=== PATIENT | male | born 1960 | race Caucasian/White ===

== ENCOUNTER → 2017-03-09 | Outpatient (REF) | payer BC ==
[2017-03-09 13:44] LABS: MEAN CORPUSCULAR HEMOGLOBIN 31.7 pg (27.0-33.0); MEAN CORPUSCULAR HGB CONC 35.5 g/dl (32.0-36.5); MEAN CORPUSCULAR VOLUME 89.3 fl (80.0-96.0); RED CELL DISTRIBUTION WIDTH 13.1 % (11.5-14.5); WHITE BLOOD COUNT 4.8 K/mm3 (4.0-10.0)
[2017-03-09 14:04] LABS: ALBUMIN 3.9 GM/DL (3.2-5.2); ALBUMIN/GLOBULIN RATIO 1.15 (1.00-1.93); ALKALINE PHOSPHATASE 67 U/L (45-117); ALT/SGPT 21 U/L (12-78); ANION GAP 6 MEQ/L (8-16); AST/SGOT 16 U/L (15-37); BILIRUBIN,TOTAL 0.6 MG/DL (0.2-1.0); BLOOD UREA NITROGEN 16 MG/DL (7-18); CALCIUM LEVEL 8.8 MG/DL (8.5-10.1); CARBON DIOXIDE LEVEL 29 MEQ/L (21-32); CHLORIDE LEVEL 106 MEQ/L (98-107); CHOLESTEROL LEVEL 168 MG/DL (<200); CREATININE FOR GFR 0.93 MG/DL (0.70-1.30); GLOMERULAR FILTRATION RATE > 60.0 (>56); GLUCOSE, FASTING 81 MG/DL (70-105); POTASSIUM SERUM 4.2 MEQ/L (3.5-5.1); SODIUM LEVEL 141 MEQ/L (136-145); TOTAL PROTEIN 7.3 GM/DL (6.4-8.2); TRIGLYCERIDES LEVEL 154 MG/DL (<150)
== END ==
LOC: M LABDRWAD 12:52
PROVIDERS: ATTEND Family Medicine
DX: N40.0 Benign prostatic hyperplasia without lower urinary tract symptoms (principal); E78.4 Other hyperlipidemia

== ENCOUNTER → 2018-03-06 | Outpatient (REF) | payer BC ==
[2018-03-06 12:46] LABS: HEMATOCRIT 43.6 % (42.0-52.0); MEAN CORPUSCULAR HEMOGLOBIN 30.8 pg (27.0-33.0); MEAN CORPUSCULAR HGB CONC 34.4 g/dl (32.0-36.5); MEAN CORPUSCULAR VOLUME 89.5 fl (80.0-96.0); PLATELET COUNT, AUTOMATED 188 10^3/uL (150-450); RED BLOOD COUNT 4.87 10^6/uL (4.30-6.10); RED CELL DISTRIBUTION WIDTH 12.9 % (11.5-14.5); WHITE BLOOD COUNT 5.8 10^3/uL (4.0-10.0)
[2018-03-06 13:09] LABS: ALBUMIN/GLOBULIN RATIO 1.21 (1.00-1.93); ALKALINE PHOSPHATASE 69 U/L (45-117); ALT/SGPT 22 U/L (12-78); ANION GAP 7 MEQ/L (8-16); AST/SGOT 19 U/L (7-37); BILIRUBIN,TOTAL 0.5 MG/DL (0.2-1.0); BLOOD UREA NITROGEN 13 MG/DL (7-18); CALCIUM LEVEL 8.4 MG/DL (8.5-10.1); CARBON DIOXIDE LEVEL 29 MEQ/L (21-32); CHLORIDE LEVEL 107 MEQ/L (98-107); CHOLESTEROL LEVEL 168 MG/DL (<200); CPK CREATINE PHOSPHOKINASE 131 U/L (39-308); CREATININE FOR GFR 0.96 MG/DL (0.70-1.30); FREE T3 3.1 PG/ML (2.2-4.0); FREE T4 0.84 NG/DL (0.76-1.46); GLOMERULAR FILTRATION RATE > 60.0 (>56); GLUCOSE, FASTING 87 MG/DL (70-100); HDL CHOLESTEROL 42 MG/DL (>40); NON-HDL-C 126 MG/DL; POTASSIUM SERUM 4.3 MEQ/L (3.5-5.1); PROSTATIC SPECIFIC AG MONITOR 0.19 NG/ML (< 4.0); SODIUM LEVEL 143 MEQ/L (136-145); TOTAL PROTEIN 7.3 GM/DL (6.4-8.2); TRIGLYCERIDES LEVEL 135 MG/DL (<150)
== END ==
LOC: M LABDRWAD 12:15
DX: E78.2 Mixed hyperlipidemia (principal); Z12.5 Encounter for screening for malignant neoplasm of prostate
CPT/HCPCS: 82550

== ENCOUNTER → 2018-03-20 | Outpatient (CLI) | payer BC | LOC: M RAD 08:29 | DX: R05 Cough (principal); M25.532 Pain in left wrist | CPT/HCPCS: 71046 ==

== ENCOUNTER → 2019-03-25 | Outpatient (CLI) | payer BC ==
[2019-03-25 12:25] LABS: HEMATOCRIT 42.1 % (42.0-52.0); HEMOGLOBIN 14.2 g/dl (13.5-17.5); MEAN CORPUSCULAR HEMOGLOBIN 30.1 pg (27.0-33.0); MEAN CORPUSCULAR HGB CONC 33.7 g/dl (32.0-36.5); MEAN CORPUSCULAR VOLUME 89.2 fl (80.0-96.0); PLATELET COUNT, AUTOMATED 207 10^3/uL (150-450); RED BLOOD COUNT 4.72 10^6/uL (4.30-6.10); WHITE BLOOD COUNT 5.4 10^3/uL (4.0-10.0)
[2019-03-25 12:50] LABS: ALBUMIN 3.8 GM/DL (3.2-5.2); ALT/SGPT 21 U/L (12-78); BILIRUBIN,TOTAL 0.7 MG/DL (0.2-1.0); BLOOD UREA NITROGEN 13 MG/DL (7-18); CALCIUM LEVEL 8.5 MG/DL (8.5-10.1); CARBON DIOXIDE LEVEL 28 MEQ/L (21-32); CHLORIDE LEVEL 105 MEQ/L (98-107); CPK CREATINE PHOSPHOKINASE 187 U/L (39-308); CREATININE FOR GFR 0.88 MG/DL (0.70-1.30); GLOMERULAR FILTRATION RATE > 60.0 (>56); GLUCOSE, FASTING 83 MG/DL (70-100); PROSTATIC SPECIFIC AG MONITOR 0.29 NG/ML (< 4.00); SODIUM LEVEL 138 MEQ/L (136-145); TOTAL PROTEIN 7.2 GM/DL (6.4-8.2)
== END ==
LOC: M LABDRWAD 08:57
PROVIDERS: ATTEND Family Medicine
DX: E78.2 Mixed hyperlipidemia (principal); Z12.5 Encounter for screening for malignant neoplasm of prostate

== ENCOUNTER → 2019-03-25 | Outpatient (CLI) | payer BC ==
--- NOTE | 2019-03-25 11:28 | REP ---
Clinical: Chronic pain. Technique: AP and lateral views of the left tibia / fibula. Findings: No acute fracture dislocation. Skeletal structures, joint spaces, and surrounding soft tissues are relatively normal for age and without acute finding. Calcification at the tibial tuberosity at the site of patellar tendon insertion may reflect mild tendinopathy. No subcutaneous emphysema or radiodense foreign body. Impression: Questionable patellar tendinopathy. Electronically Signed by Gunnar Madison MD 03/25/2019 11:19 A
== END ==
LOC: M ADAMS 08:53
PROVIDERS: ATTEND Family Medicine
DX: G89.29 Other chronic pain (principal)

== ENCOUNTER → 2020-04-06 | Outpatient (REF) | payer BC ==
[~2020-04-06] MED LIST: ASPI81TA86 PO; CARV3.12 PO; FINA5TAB2; LISI10TA4; MM S100C PO; NORC1TAB7 PO; OMEP-218 PO; PRAV20TA2 PO
[2020-04-06 13:09] LABS: HEMATOCRIT 43.1 % (42.0-52.0); HEMOGLOBIN 14.3 g/dl (13.5-17.5); MEAN CORPUSCULAR HEMOGLOBIN 29.7 pg (27.0-33.0); MEAN CORPUSCULAR HGB CONC 33.2 g/dl (32.0-36.5); MEAN CORPUSCULAR VOLUME 89.6 fl (80.0-96.0); PLATELET COUNT, AUTOMATED 189 10^3/uL (150-450); RED BLOOD COUNT 4.81 10^6/uL (4.30-6.10); WHITE BLOOD COUNT 5.7 10^3/uL (4.0-10.0)
[2020-04-06 13:19] LABS: ALBUMIN 3.7 GM/DL (3.2-5.2); ALT/SGPT 22 U/L (12-78); BILIRUBIN,TOTAL 0.7 MG/DL (0.2-1.0); BLOOD UREA NITROGEN 14 MG/DL (7-18); CALCIUM LEVEL 8.8 MG/DL (8.5-10.1); CARBON DIOXIDE LEVEL 29 MEQ/L (21-32); CHLORIDE LEVEL 107 MEQ/L (98-107); CREATININE FOR GFR 0.93 MG/DL (0.70-1.30); FREE T3 2.9 PG/ML (2.2-4.0); FREE T4 0.83 NG/DL (0.76-1.46); GLOMERULAR FILTRATION RATE > 60.0 (>56); GLUCOSE, FASTING 84 MG/DL (70-100); POTASSIUM SERUM 4.4 MEQ/L (3.5-5.1); PROSTATIC SPECIFIC AG MONITOR 0.25 NG/ML (< 4.00); SODIUM LEVEL 141 MEQ/L (136-145); TOTAL PROTEIN 7.3 GM/DL (6.4-8.2); URIC ACID 6.1 MG/DL (3.5-7.2)
[2020-04-06 13:42] LABS: CREATININE, URINE 57.3 MG/DL; MALB URINE SIEMENS < 5.0 MG/L; MAU/CREAT RATIO 8.7 MCG/MG (0.0-30.0)
== END ==
LOC: M LABDRWAD 12:23
PROVIDERS: ATTEND Family Medicine
DX: N40.0 Benign prostatic hyperplasia without lower urinary tract symptoms (principal); N18.2 Chronic kidney disease, stage 2 (mild); E06.3 Autoimmune thyroiditis

== ENCOUNTER → 2020-07-03 | Outpatient (CLI) | payer BC | LOC: M LABSMTC 08:54 | PROVIDERS: ATTEND Anesthesiology | DX: Z01.812 Encounter for preprocedural laboratory examination (principal); Z20.828 Contact with and (suspected) exposure to other viral communicable diseases | CPT/HCPCS: C9803; U0003 ==

== ENCOUNTER 2020-07-08 05:56 | Day surgery (SDC) | payer BC ==
[~2020-07-08] VITALS: Ht 172.7 cm; Wt 108.0 kg
[~2020-07-08 05:56] MED LIST changes: -NORC1TAB7 PO
[2020-07-08] MEDS ORDERED: LR 1,000 ML IV ONE (06:00)
[2020-07-08] MEDS ORDERED: BUPIVACAINE HCL 0.25% 30ML VIAL As Ordered ONE (07:18)
[2020-07-08] MEDS ORDERED: ROCURONIUM BROMIDE 50 MG/5 ML VIAL As Ordered ONE (07:19)
[2020-07-08] MEDS ORDERED: fentaNYL 250 MCG/5 ML INJECTION (J3010) As Ordered ONE (07:19)
[2020-07-08] MEDS ORDERED: dexameTHASONE 4 MG/ML 1ML VIAL (J1100 PER 1MG) As Ordered ONE (07:19)
[2020-07-08] MEDS ORDERED: propofoL 200 MG/20 ML VIAL As Ordered ONE (07:19)
[2020-07-08] MEDS ORDERED: LIDOCAINE 2% 100MG/5ML SDV (FOR ANES.) As Ordered ONE (07:19)
[2020-07-08] MEDS ORDERED: ONDANSETRON 4MG/2ML VIAL As Ordered ONE ×2 (07:19→09:19)
[2020-07-08] MEDS ORDERED: MIDAZOLAM INJ 2MG/2ML VIAL (J2250 PER 1MG) As Ordered ONE (07:20)
[2020-07-08] MEDS ORDERED: SCOPOLAMINE 1MG TRANSDERMAL PATCH As Ordered ONE (07:21)
[2020-07-08] MEDS ORDERED: LACRILUBE (AKWA TEARS) OPHTH OINT 3.5 GM As Ordered ONE (07:47)
[2020-07-08] MEDS ORDERED: PHENYLephrine HCL 500 MCG/5 ML (100MCG/ML) SYRINGE (J2370) As Ordered ONE (07:53)
[2020-07-08] MEDS ORDERED: SCOPOLAMINE 1MG TRANSDERMAL PATCH TOP ONE (08:00)
[2020-07-08] MEDS ORDERED: ACETAMINOPHEN 1000MG 100ML IV BTL (OFIRMEV) (J0131 PER 10MG) As Ordered ONE (08:28)
[2020-07-08] MEDS ORDERED: HYDROmorphone HCL 2 MG/ML 1ML VIAL (J1170) As Ordered ONE (08:38)
[2020-07-08] MEDS ORDERED: SUGAMMADEX SODIUM 500 MG/5 ML VIAL (BRIDION) As Ordered ONE (08:38)
[2020-07-08] MEDS ORDERED: METOCLOPRAMIDE INJ 10MG/2ML VIAL (J2765 PER 1) As Ordered ONE (08:48)
[2020-07-08] MEDS ORDERED: NORC1TAB7 PO (09:51)
[2020-07-08] MEDS ORDERED: oxyCODONE 5MG TAB As Ordered ONE (10:07)
[2020-07-08] MEDS ORDERED: fentaNYL 100 MCG/2 ML INJECTION (J3010) IV PRN (10:30)
[2020-07-08] MEDS ORDERED: oxyCODONE 5MG TAB PO PRN (10:30)
[2020-07-08] MEDS ORDERED: ONDANSETRON 4MG/2ML VIAL IV PRN (10:30)
[2020-07-08] MEDS ORDERED: LR 1,000 ML IV SCH (10:30)
[2020-07-08] MEDS ORDERED: ACETAMINOPHEN TAB 650MG DOSE (2X325MG) PO PRN (11:00)
[2020-07-08 11:25] VITALS: BP 132/69
--- NOTE | 2020-07-08 14:06 | RO ---
DATE OF OPERATION: 07/08/2020 PREOPERATIVE DIAGNOSIS: Right inguinal hernia. POSTOPERATIVE DIAGNOSES: 1. Indirect right inguinal hernia. 2. Abdominal adhesions secondary to prior hernia repair. PROCEDURE PERFORMED: Laparoscopic lysis of adhesions and robotic-assisted laparoscopic repair of right inguinal hernia with mesh. The mesh utilized was [employer] ProGrip reference code [id number] and lot #[id number]. SURGEON: Viktor Covarrubias MD PERSONAL FINANCE INSTRUCTOR: JOHANN Ramirez was essential for management of the robotic arms, placement of the trocars, change of instruments, passage of needles and mesh, and closing of the incisions at the conclusion of the procedure. ANESTHESIA: General. INDICATIONS FOR PROCEDURE: Patient is a 60-year-old man who has noticed a bulge in the right inguinal area. Examination confirmed an inguinal hernia and he is now for repair. OPERATIVE PROCEDURE: The patient was brought to the operating room and placed on the table in a supine position. He was placed under general endotracheal anesthesia. The patient's abdomen was prepped and draped in a sterile fashion. 0.25% Marcaine was infiltrated at each of the trocars as needed. A short transverse incision was made about 4 cm above the umbilicus along the midline. A Veress needle was inserted and after a positive hanging drop test, the abdomen was insufflated with carbon dioxide gas. An 8 mm robotic port was placed over a 5 mm scope and advanced through the abdominal wall. On entering the abdomen, it was clear that there were some adhesions of the omentum to the anterior abdominal wall just inferior to the insertion site of the trocar. The patient has a history of a prior hernia repair with mesh along the midline. It was possible to maneuver the scope around the adhesions to see his definite right inguinal hernia. There were a few adhesions of the bowel in the left lower quadrant that obscured the left inguinal area. Liver and gallbladder appeared normal. Otherwise, the abdomen was without any apparent abnormalities. A second robotic port was placed in the right upper quadrant and a third in the left. I elected to perform an adhesiolysis so that these would not interfere with the surgery. A 5 mm scissor was placed through the midline port with the camera in the left upper quadrant and the cauterizing scissors were used to perform an adhesiolysis of the omentum to the mesh along the midline. This was completed without difficulty and blood loss was minimal. The patient was then tilted to a 15-degree Trendelenburg position. The table was lowered. The patient cart of the Xi robot was brought into position and the endoscope port was docked. Targeting took place in the right pelvis and the additional ports were then docked to the appropriate robotic arms. A fenestrated bipolar and cauterizing scissors were inserted and I then moved to the control console to proceed with the operation. Initially, I took down the few filmy adhesions of the colon in the left lower quadrant to better inspect the left lower quadrant. There was a small dimple in the left inguinal area but this did not appear to constitute a hernia so this was noted but no surgery was undertaken on the left. On the right side, he had a definite indirect hernia sac. A peritoneal flap was then developed. A peritoneal incision was begun using the cautery approximately 5-6 cm above the top of the hernia defect. An incision was made beginning at the lateral aspect of the medial umbilical ligament and extending laterally and then curving inferiorly toward the anterosuperior iliac spine. The peritoneal flap was developed by a combination of blunt, sharp and cautery dissection. As the hernia sac was identified, this was withdrawn from within the inguinal canal and from the underlying spermatic cord structures, which were preserved. Small bleeding points were controlled with the cautery. The peritoneum was peeled away to create a space for placement of a 10 x 15 cm patch. Once the flap had been created, cottonoids were used to remove a small amount of blood and several small bleeding points were controlled with the cautery. A 10 x 15 cm ProGrip mesh was then trimmed slightly at the corners and inserted into the abdomen. This was placed over the inner aspect of the inguinal floor centered on the hernia defect. The mesh was then unfolded and then pressed gently into the underlying soft tissues. The adherent side nicely fixed the mesh in place. Final inspection revealed excellent hemostasis. A 2-0 absorbable V-Loc suture was begun at the lateral aspect of the peritoneal flap and carried medially. Once the first half of the closure was complete, the pressure within the abdomen was reduced to 8 mmHg and the patient was returned to a flat position. The remaining portion of the closure was completed. The last cottonoid and remaining suture needle were removed from the abdomen. The patient tolerated the procedure well without apparent complication. The robotic instruments were removed. The robot was undocked. The abdomen was deflated and the trocars were removed. Najma Avendaño then proceeded to close the skin incisions with buried 4-0 Vicryl and Steri- Strips. Light dressings were applied. The patient was then awakened in the operating room, extubated and moved to the recovery room in stable condition. MACY
== END 2020-07-08 11:30 | disposition home or self-care (01) ==
LOC: M SDC 05:56
PROVIDERS: ATTEND Surgery
DX: K40.90 Unilateral inguinal hernia, without obstruction or gangrene, not specified as recurrent (principal); K66.0 Peritoneal adhesions (postprocedural) (postinfection); I10 Essential (primary) hypertension; K21.9 Gastro-esophageal reflux disease without esophagitis; N40.0 Benign prostatic hyperplasia without lower urinary tract symptoms; Z87.891 Personal history of nicotine dependence; F12.10 Cannabis abuse, uncomplicated; Z79.899 Other long term (current) drug therapy
CPT/HCPCS: 49650; C1781; J0131; J1100; J1170; J2250; J2370; J2405; J2765; J3010; S2900

== ENCOUNTER → 2021-01-31 | Outpatient (REF) | payer BC ==
[~2021-01-31] MED LIST changes: +LISI10TA22; -LISI10TA4; +NORC1TAB7 PO
[2021-01-31 13:35] LABS: BASO # 0.1 10^3/uL (0.0-0.2); BASO % 1.4 % (0.0-1.0); EOS # 0.3 10^3/uL (0.0-0.5); EOS % 5.3 % (0.0-3.0); HEMATOCRIT 42.2 % (42.0-52.0); HEMOGLOBIN 14.3 g/dl (13.5-17.5); LYMPH # 1.9 10^3/uL (1.5-5.0); MEAN CORPUSCULAR HEMOGLOBIN 30.1 pg (27.0-33.0); MEAN CORPUSCULAR HGB CONC 33.9 g/dl (32.0-36.5); MEAN CORPUSCULAR VOLUME 88.8 fl (80.0-96.0); MONO # 0.4 10^3/uL (0.0-0.8); MONO % 6.9 % (2.0-8.0); NEUTROPHILS # 3.6 10^3/uL (1.5-8.5); NEUTROPHILS % 56.1 % (36.0-66.0); PLATELET COUNT, AUTOMATED 204 10^3/uL (150-450); RED BLOOD COUNT 4.75 10^6/uL (4.30-6.10); WHITE BLOOD COUNT 6.4 10^3/uL (4.0-10.0)
[2021-01-31 14:08] LABS: ALT/SGPT 23 U/L (12-78); BILIRUBIN,TOTAL 0.5 MG/DL (0.2-1.0); BLOOD UREA NITROGEN 17 MG/DL (7-18); CALCIUM LEVEL 9.4 MG/DL (8.5-10.1); CARBON DIOXIDE LEVEL 29 MEQ/L (21-32); CHLORIDE LEVEL 107 MEQ/L (98-107); CHOLESTEROL LEVEL 171 MG/DL (<200); CREATININE FOR GFR 0.88 MG/DL (0.70-1.30); GLOMERULAR FILTRATION RATE > 60.0 (>56); GLUCOSE, FASTING 81 MG/DL (70-100); HDL CHOLESTEROL 45 MG/DL (>40); LDL CHOLESTEROL 98 MG/DL (<100); NON-HDL-C 126 MG/DL; POTASSIUM SERUM 4.5 MEQ/L (3.5-5.1); SODIUM LEVEL 140 MEQ/L (136-145); TOTAL PROTEIN 7.4 GM/DL (6.4-8.2); TRIGLYCERIDES LEVEL 138 MG/DL (<150)
== END ==
LOC: M LABDRWAD 13:12
PROVIDERS: ATTEND Nurse Practitioner Family
DX: I35.9 Nonrheumatic aortic valve disorder, unspecified (principal); I44.7 Left bundle-branch block, unspecified; I42.0 Dilated cardiomyopathy; E78.00 Pure hypercholesterolemia, unspecified; Z79.82 Long term (current) use of aspirin

== ENCOUNTER → 2021-02-06 | Outpatient (CLI) | payer BC | LOC: M LABSMTC 10:31 | PROVIDERS: ATTEND Internal Medicine Cardiovascular Disease | DX: Z20.828 Contact with and (suspected) exposure to other viral communicable diseases (principal); Z11.59 Encounter for screening for other viral diseases ==

== ENCOUNTER → 2022-02-13 | Outpatient (CLI) | payer BC ==
[~2022-02-13] MED LIST changes: +OMEP-173 PO; -OMEP-218 PO
[2022-02-13 13:28] LABS: ALBUMIN 3.7 GM/DL (3.2-5.2); ALT/SGPT 25 U/L (12-78); BILIRUBIN,DIRECT 0.1 MG/DL (0.0-0.2); BILIRUBIN,TOTAL 0.5 MG/DL (0.2-1.0); BLOOD UREA NITROGEN 14 MG/DL (7-18); CALCIUM LEVEL 8.7 MG/DL (8.8-10.2); CARBON DIOXIDE LEVEL 27 MEQ/L (21-32); CHLORIDE LEVEL 107 MEQ/L (98-107); CHOLESTEROL LEVEL 133 MG/DL (<200); CHOLESTEROL RISK RATIO 3.093 (<5); CREATININE FOR GFR 0.99 MG/DL (0.70-1.30); GLOMERULAR FILTRATION RATE > 60.0 (>49); GLUCOSE, FASTING 87 MG/DL (70-100); HDL CHOLESTEROL 43 MG/DL (>40); LDL CHOLESTEROL 68 MG/DL (<100); MAGNESIUM LEVEL 1.8 MG/DL (1.8-2.4); NON-HDL-C 90 MG/DL; NT-PRO BNP 72 PG/ML (<125); POTASSIUM SERUM 4.1 MEQ/L (3.5-5.1); SODIUM LEVEL 139 MEQ/L (136-145); TOTAL PROTEIN 7.2 GM/DL (6.4-8.2); TRIGLYCERIDES LEVEL 111 MG/DL (<150); URIC ACID 6.9 MG/DL (3.5-7.2)
[2022-02-13 13:33] LABS: TESTOSTERONE 670 NG/DL (241-827)
== END ==
LOC: M ADAMS 08:37
PROVIDERS: ATTEND Family Medicine
DX: R06.02 Shortness of breath (principal); E78.2 Mixed hyperlipidemia; I50.20 Unspecified systolic (congestive) heart failure; I11.0 Hypertensive heart disease with heart failure; F52.21 Male erectile disorder

== ENCOUNTER → 2022-02-22 | Outpatient (CLI) | payer BC ==
[2022-02-22 13:29] LABS: FREE T3 2.5 PG/ML (2.2-4.0); FREE T4 0.76 NG/DL (0.76-1.46); THYROID STIMULATING HORMONE 3.26 uIU/ML (0.358-3.740)
== END ==
LOC: M ADAMS 10:55
PROVIDERS: ATTEND Family Medicine
DX: R00.2 Palpitations (principal)

== ENCOUNTER → 2022-02-27 | Outpatient (CLI) | payer BC | LOC: M RAD 07:37 | PROVIDERS: ATTEND Family Medicine | DX: Z01.89 Encounter for other specified special examinations (principal) ==

== ENCOUNTER → 2022-03-01 | Outpatient (CLI) | payer BC | LOC: M RAD 09:00 | PROVIDERS: ATTEND Family Medicine | DX: R05.9 Cough, unspecified (principal); K44.9 Diaphragmatic hernia without obstruction or gangrene; K80.20 Calculus of gallbladder without cholecystitis without obstruction; I25.10 Atherosclerotic heart disease of native coronary artery without angina pectoris ==

== ENCOUNTER → 2024-01-14 | Outpatient (REF) | payer BC ==
[2024-01-14 14:17] LABS: ALBUMIN 3.8 G/DL (3.2-5.2); ALKALINE PHOSPHATASE 98 U/L (46-116); ALT/SGPT 24 U/L (7.0-40); AST/SGOT 23 U/L (<34); BILIRUBIN,TOTAL 0.7 MG/DL (0.3-1.2); BLOOD UREA NITROGEN 16 MG/DL (9-23); CALCIUM LEVEL 9.9 MG/DL (8.3-10.6); CARBON DIOXIDE LEVEL 30 MMOL/L (20-31); CHLORIDE LEVEL 103 MMOL/L (98-107); CHOLESTEROL LEVEL 123 MG/DL (<200); CHOLESTEROL RISK RATIO 3.48 (<5); CREATININE FOR GFR 0.95 MG/DL (0.70-1.30); GLOMERULAR FILTRATION RATE > 60.0 (>49); GLUCOSE, FASTING 93 MG/DL (74-106); HDL CHOLESTEROL 35.3 MG/DL (>40); LDL CHOLESTEROL 67.7 MG/DL (<100); NON-HDL-C 87.7 MG/DL; POTASSIUM SERUM 4.8 MMOL/L (3.5-5.1); SODIUM LEVEL 137 MMOL/L (136-145); TOTAL PROTEIN 7.3 G/DL (5.7-8.2); TRIGLYCERIDES LEVEL 100 MG/DL (<150)
== END ==
LOC: M LABDRWAD 12:29
PROVIDERS: ATTEND Registered Nurse
DX: E78.2 Mixed hyperlipidemia (principal)

== ENCOUNTER → 2024-02-25 | Outpatient (CLI) | payer BC ==
[2024-02-25 10:19] LABS: BASO # 0.1 10^3/uL (0.0-0.2); BASO % 1.4 % (0.0-1.0); EOS # 0.2 10^3/uL (0.0-0.5); EOS % 3.1 % (0.0-3.0); HEMATOCRIT 44.2 % (42.0-52.0); HEMOGLOBIN 15.2 g/dl (13.5-17.5); LYMPH % 27.8 % (24.0-44.0); MEAN CORPUSCULAR HEMOGLOBIN 30.4 pg (27.0-33.0); MEAN CORPUSCULAR HGB CONC 34.4 g/dl (32.0-36.5); MEAN CORPUSCULAR VOLUME 88.4 fl (80.0-96.0); MONO # 0.5 10^3/uL (0.0-0.8); MONO % 7.2 % (2.0-8.0); NEUTROPHILS # 4.3 10^3/uL (1.5-8.5); NEUTROPHILS % 60.4 % (36.0-66.0); PLATELET COUNT, AUTOMATED 217 10^3/uL (150-450); WHITE BLOOD COUNT 7.1 10^3/uL (4.0-10.0)
[2024-02-25 10:25] LABS: ERYTHROCYTE SEDIMENTATION RATE 11 mm/hr (0-20)
[2024-02-25 10:32] LABS: HEMOGLOBIN A1c 5.2 % (4.0-6.0)
[2024-02-25 10:43] LABS: C REACTIVE PROTEIN QUANTITATIV < 0.40 MG/DL (<1.0)
[2024-02-25 10:44] LABS: ALBUMIN 3.9 G/DL (3.2-5.2); ALKALINE PHOSPHATASE 90 U/L (46-116); ALT/SGPT 24 U/L (7.0-40); AST/SGOT 18 U/L (<34); BILIRUBIN,TOTAL 0.8 MG/DL (0.3-1.2); BLOOD UREA NITROGEN 13 MG/DL (9-23); CALCIUM LEVEL 9.5 MG/DL (8.3-10.6); CARBON DIOXIDE LEVEL 31 MMOL/L (20-31); CHLORIDE LEVEL 105 MMOL/L (98-107); CREATININE FOR GFR 0.89 MG/DL (0.70-1.30); GLOMERULAR FILTRATION RATE > 60.0 (>49); GLUCOSE, FASTING 89 MG/DL (74-106); POTASSIUM SERUM 5.2 MMOL/L (3.5-5.1); PROSTATIC SPECIFIC AG MONITOR 0.17 NG/ML (< 4.00); SODIUM LEVEL 140 MMOL/L (136-145); TOTAL PROTEIN 7.5 G/DL (5.7-8.2)
[2024-02-25 10:49] LABS: FREE T4 0.74 NG/DL (0.89-1.76); THYROID STIMULATING HORMONE 5.275 uIU/ML (0.55-4.78)
[2024-02-25 10:50] LABS: FREE T3 3.3 PG/ML (2.3-4.2)
== END ==
LOC: M LAB 09:30
PROVIDERS: ATTEND Registered Nurse
DX: K40.90 Unilateral inguinal hernia, without obstruction or gangrene, not specified as recurrent (principal); I10 Essential (primary) hypertension; E06.3 Autoimmune thyroiditis; E78.2 Mixed hyperlipidemia; Z12.5 Encounter for screening for malignant neoplasm of prostate

== ENCOUNTER → 2024-03-25 | Outpatient (CLI) | payer BC, SELFPAY ==
[~2024-03-25] MED LIST changes: +GASTROGRAFIN SOLUTION 30ML As Ordered ONE; +ISOVUE-370 76% 100ML VIAL As Ordered ONE
== END ==
LOC: M RAD 14:14
PROVIDERS: ATTEND Surgery
DX: R10.11 Right upper quadrant pain (principal)
CPT/HCPCS: 74177; Q9963; Q9967

== ENCOUNTER → 2024-04-30 | Outpatient (REF) | payer BC ==
[~2024-04-30] MED LIST changes: -GASTROGRAFIN SOLUTION 30ML As Ordered ONE; -ISOVUE-370 76% 100ML VIAL As Ordered ONE
[2024-04-30 15:20] LABS: CHOLESTEROL RISK RATIO 3.34 (<5); HDL CHOLESTEROL 38.6 MG/DL (>40); LDL CHOLESTEROL 64.2 MG/DL (<100); NON-HDL-C 90.4 MG/DL; POTASSIUM SERUM 4.4 MMOL/L (3.5-5.1)
== END ==
LOC: M LABDRWAD 13:05
PROVIDERS: ATTEND Registered Nurse
DX: E78.2 Mixed hyperlipidemia (principal); E87.5 Hyperkalemia

== ENCOUNTER → 2025-04-24 | Outpatient (CLI) | payer BC ==
[~2025-04-24] MED LIST changes: +AMOX875T2 PO; +ATOR40TA75 PO; -FINA5TAB2; +FINA5TAB2 PO; +ICOS1CAP PO; +LOSA50TA28 PO; -PRAV20TA2 PO; +PRAV20TA78 PO
[2025-04-24 08:26] LABS: PLATELET COUNT, AUTOMATED 169 10^3/uL (150-450)
[2025-04-24 08:30] LABS: APPEARANCE, URINE CLEAR (CLEAR); BACTERIA, URINE AUTO NEGATIVE (NEGATIVE); BILIRUBIN, URINE AUTO NEGATIVE (NEGATIVE); BLOOD, URINE BLOOD NEGATIVE (NEGATIVE); GLUCOSE, URINE (UA) AUTO NEGATIVE (NEGATIVE); KETONE, URINE AUTO NEGATIVE (NEGATIVE); LEUKOCYTE ESTERASE, URINE AUTO NEGATIVE (NEGATIVE); NITRITE, URINE AUTO NEGATIVE (NEGATIVE); PROTEIN, URINE AUTO NEGATIVE (NEGATIVE); RBC, URINE AUTO 1 /HPF (0-3); SPECIFIC GRAVITY URINE AUTO 1.012 (1.002-1.035); SQUAMOUS EPITHELIAL CELL UR AU 0 /HPF (0-6); UROBILINOGEN, URINE AUTO 0.2 mg/dL (0.0-2.0); WBC, URINE AUTO 0 /HPF (0-3)
[2025-04-24 08:46] LABS: ESTIMATED AVERAGE GLUCOSE 105.0 MG/DL (60-110)
[2025-04-24 08:55] LABS: ALT/SGPT 25 U/L (7.0-40); AST/SGOT 27 U/L (<34); CALCIUM LEVEL 9.0 MG/DL (8.3-10.6); CARBON DIOXIDE LEVEL 28 MMOL/L (20-31); CHLORIDE LEVEL 104 MMOL/L (98-107); CHOLESTEROL LEVEL 134 MG/DL (<200); CHOLESTEROL RISK RATIO 3.70 (<5); CPK CREATINE PHOSPHOKINASE 186 U/L (46-171); CREATININE FOR GFR 0.94 MG/DL (0.70-1.30); GLOMERULAR FILTRATION RATE > 90.0 (>49); LDL CHOLESTEROL 72.8 MG/DL (<100); NON-HDL-C 97.8 MG/DL; POTASSIUM SERUM 4.6 MMOL/L (3.5-5.1); SODIUM LEVEL 142 MMOL/L (136-145); TRIGLYCERIDES LEVEL 125 MG/DL (<150)
[2025-04-24 08:56] LABS: PROSTATIC SPECIFIC AG MONITOR 0.18 NG/ML (< 4.00)
[2025-04-24 08:56] LABS: CREATININE, URINE 70.8 MG/DL; MALB URINE SIEMENS < 3.0 MG/L
[2025-04-24 08:59] LABS: FREE T4 0.85 NG/DL (0.89-1.76)
== END ==
LOC: M LAB 07:23
PROVIDERS: ATTEND Registered Nurse
DX: E78.2 Mixed hyperlipidemia (principal); I11.0 Hypertensive heart disease with heart failure; I50.20 Unspecified systolic (congestive) heart failure; N40.1 Benign prostatic hyperplasia with lower urinary tract symptoms; E06.3 Autoimmune thyroiditis; Z13.1 Encounter for screening for diabetes mellitus

== ENCOUNTER → 2025-05-13 | Outpatient (REF) | payer BC ==
[2025-05-13 14:14] LABS: FREE T4 0.81 NG/DL (0.89-1.76)
== END ==
LOC: M LABDRWAD 13:12
PROVIDERS: ATTEND Registered Nurse
DX: E02 Subclinical iodine-deficiency hypothyroidism (principal)